=== PATIENT | male | born 1955 | race Caucasian/White ===

== ENCOUNTER 2018-05-03 11:54 | Day surgery (SDC) | payer BC ==
[~2018-05-03 11:54] MED LIST: Metoclopramide 10 MG/2 ML SDV IV PRN; Sodium Chloride 0.9% 1,000 ML IV SCH
[2018-05-03] MEDS ORDERED: Propofol 1,000 MG/100 ML SDV ONE (13:50)
[2018-05-03] MEDS ORDERED: Midazolam 1 MG/ML 2 ML SDV ONE (13:50)
[2018-05-03] MEDS ORDERED: Atropine 0.4 MG/ML SDV ONE (13:50)
--- NOTE | 2018-05-03 15:01 | OR ---
DATE OF OPERATION: 05/03/2018 PREOPERATIVE DIAGNOSIS: Screening colonoscopy. POSTOPERATIVE DIAGNOSIS: Screening colonoscopy. PROCEDURE: Incomplete colonoscopy with biopsy. ANESTHESIA: MAC. ESTIMATED BLOOD LOSS: Minimal. COMPLICATIONS: None. INDICATION FOR THE PROCEDURE: The patient is a 63-year-old male, here today for his first colonoscopy, no family history. Denies any change in bowel habits. DESCRIPTION OF THE PROCEDURE: Informed consent was obtained from the patient. The patient was taken to the operating room and placed on table in left lateral decubitus position. Monitored anesthesia care was administered. Digital rectal exam was performed and was normal. Colonoscope was then advanced through the anus and directed proximally and did reach approximately the splenic flexure when I encountered a large circumferential partially obstructing colon mass. This did appear likely malignant. Multiple cold forceps biopsies were taken. Was unable to safely negotiate past the mass. However, it was circumferential and at least 3 to 4 cm in length, but unable to safely negotiate through there. Colonoscope was then withdrawn. Mass was at approximately 60 cm and was approximately at the splenic flexure. The patient also had a small sessile polyp immediately distal to this , which was also left in place. At the end of the case, the patient tolerated the procedure well and was brought to the recovery room in good condition. Findings: Likely malignant mass near splenic flexure. Will f/u biopsies. Recommendations: Will send for CT colonography to clear the remainder of colon of any additional masses. Awaiting pathology. Further imaging and labs to follow. Will plan for surgical resection. GRAHAM /[id number] KIMBERLY
== END 2018-05-03 16:00 | disposition home or self-care (01) ==
LOC: LB.SDS 11:54
PROVIDERS: ATTEND Surgery
DX: Z12.11 Encounter for screening for malignant neoplasm of colon (principal); K63.5 Polyp of colon
CPT/HCPCS: 45378; 45380; 88305; J0461; J2250; J2704; J7030

== ENCOUNTER 2019-08-23 11:24 | Day surgery (SDC) | payer BC ==
[2019-08-23] MEDS ORDERED: Propofol 200 MG/20 ML SDV ONE (14:20)
--- NOTE | 2019-08-23 17:27 | OR ---
DATE OF OPERATION: 08/23/2019 SURGEON: Anoop Ogden MD PREOPERATIVE DIAGNOSIS: History of sigmoid colon cancer. POSTOPERATIVE DIAGNOSIS: History of sigmoid colon cancer. PROCEDURE: Surveillance colonoscopy. ANESTHESIA: MAC. ESTIMATED BLOOD LOSS: None. COMPLICATIONS: None. INDICATION FOR THE PROCEDURE: The patient is a 64-year-old male who 1 year ago was found to have a sigmoid colon cancer, did have resection of this done at [facility]. He is here today for 1 year followup. He otherwise denies any problems. DESCRIPTION OF PROCEDURE: Informed consent was obtained from the patient. The patient was taken to the operating room, placed on the table in left lateral decubitus position. Monitored anesthesia care was administered. Digital rectal exam performed, it was normal. Colonoscope was then advanced through the anus, directed toward the cecum. Cecum was reached and identified by appendiceal orifice and ileocecal valve. Colonoscope was then slowly withdrawn. No polyps. No masses. No areas of ischemia or inflammation identified. Anastomosis was identified and was widely patent. No signs of recurrence around this. The colonoscope was then further withdrawn. Rectum was also otherwise unremarkable. Colonoscope was then withdrawn. FINDINGS: Normal colonoscopy. RECOMMENDATIONS: We would recommend repeat surveillance colonoscopy in 3 years. JOSE/GEORGINA /[id number]
== END 2019-08-23 15:45 | disposition home or self-care (01) ==
LOC: LB.SDS 11:24
PROVIDERS: ATTEND Surgery
DX: Z12.11 Encounter for screening for malignant neoplasm of colon (principal); Z85.038 Personal history of other malignant neoplasm of large intestine; Z98.890 Other specified postprocedural states
CPT/HCPCS: 45378; J2704; J2765; J7030; G0121

== ENCOUNTER 2020-10-31 16:51 | Emergency (ER) | payer BC ==
[2020-10-31] MEDS ORDERED: Ketorolac 60 MG/2 ML SDV IM ONE (17:09)
--- NOTE | 2020-10-31 17:15 | EDM.PDOC ---
ED HPI GENERAL MEDICAL PROBLEM - General Chief Complaint: Back Pain or Injury Stated Complaint: Back pain Time Seen by Provider: 10/31/20 17:00 Source of Information: Reports: Patient History Limitations: Reports: No Limitations - History of Present Illness INITIAL COMMENTS - FREE TEXT/NARRATIVE: This patient presents to the emergency department for evaluation of back pain. He states he injured his back yesterday morning while getting out of bed to black pickler child. He states he thinks he twisted and felt tightness in his lower back immediately. He used ibuprofen at home and did see a chiropractor who made some type of an adjustment. He presents today because the pain is got unbearable and he now has pain in his right buttock and down his right leg. He denies any fall s. He denies any numbness or tingling in his feet and any incontinence of bowel or bladder. He states he had a previous musculoskeletal injury to his back approximately 15 years ago but did not have any pain down his leg. - Related Data Allergies Allergy/AdvReac Type Severity Reaction Status Date / Time No Known Allergies Allergy Verified 08/22/19 13:37 Home Meds: Home Meds NK [No Known Home Meds] 05/02/18 [History] Past Medical History Respiratory History: Reports: None Psychiatric History: Reports: None Oncologic (Cancer) History: Reports: Other (See Below) Other Oncologic History: Adenocarcinoma of sigmoid colon - Past Surgical History GI Surgical History: Reports: Colonoscopy, Other (See Below) Other GI Surgeries/Procedures: Colon resection r/t adenocarcinoma of sigmoid colon Social & Family History - Family History Family Medical History: No Pertinent Family History - Caffeine Use Caffeine Use: Reports: Coffee ED ROS GENERAL - Review of Systems Review Of Systems: Comprehensive ROS is negative, except as noted in HPI. Musculoskeletal: Reports: Back Pain, Leg Pain (Kathy did I asked her to). Denies: Neck Pain Neurological: Reports: Difficulty Walking. Denies: Numbness, Tingling, Weakness ED EXAM,LOWER BACK PAIN/INJURY - Physical Exam Exam: See Below Exam Limited By: No Limitations General Appearance: Alert, No Apparent Distress Ears: Normal External Exam Nose: Normal Inspection Throat/Mouth: Normal Inspection Head: Atraumatic, Normocephalic Neck: Normal Inspection Respiratory/Chest: No Respiratory Distress, No Accessory Muscle Use Back Exam: Normal Inspection, Decreased Range of Motion, Muscle Spasm, Paraspinal Tenderness (At approximately L4 and laterally to his left side. He also has tenderness in the left buttock and down his left leg.). No: Vertebral Tenderness Course - Orders/Labs/Meds Meds: Medications Discontinued Medications Generic Name Dose Route Start Last Admin Trade Name Royer PRN Reason Stop Dose Admin Ketorolac Tromethamine 60 mg 10/31/20 17:09 10/31/20 17:13 Ketorolac 60 Mg/2 Ml Sdv IM 10/31/20 17:10 60 mg ONETIME ONE Administration - Re-Assessments/Exams Free Text/Narrative Re-Assessment/Exam: 10/31/20 17:42 This patient presents to the emergency department for evaluation of lower back pain. He does have a history of back pain in the past. Back pain improved with the Toradol he was given here in the emergency department patient did not sustain any trauma so there does not seem to be a need to do x-rays due to the low likelihood of fracture or dislocation or subluxation. There are no red flag symptoms to suggest a CT her bladder or MRI is indicated at this point. He has not had a fever, saddle or perineal anesthesia bilateral foot numbness or bowel or bladder dysfunction. There is no clinical evidence of cauda equina syndrome, discitis, spinal or epidural space hematoma, or epidural abscess. Neurologic exam is grossly intact and the patient's symptoms seem consistent with a month kilo skeletal issue with muscle spasms and sciatica. Patient will be discharged with a nonsteroidal anti-inflammatory, Flexeril, and instructions for supportive care to include rest, ice, and gentle stretching exercises. He was cautioned to avoid heavy lifting, bending, or twisting. He should return for increasing pain, numbness, weakness or bowel or bladder dysfunction. He should follow up with his primary care provider as needed. The patient was stable at time of discharge. Departure - Departure Time of Disposition: 17:45 Disposition: Home, Self-Care 01 Condition: Good Clinical Impression: Low back pain - Discharge Information Instructions: Back Injury Prevention, [id number], Muscle Strain, [id number] Forms: ED Department Discharge Additional Instructions: Take Flexaril 10mg one tab 3 times a day as needed and Naproxen 500mg one tab twice a day. Follow up with primary provider.
[2020-10-31] MEDS ORDERED: Cyclobenzaprine 10 MG Tab ONE (17:30)
[2020-10-31] MEDS ORDERED: Naproxen 500 MG Tab ONE (17:30)
== END 2020-10-31 17:40 | disposition home or self-care (01) ==
LOC: LB.ED 16:51
DX: M54.5 Low back pain (principal)
CPT/HCPCS: 96372; 99283; A9270-GY; J1885

== ENCOUNTER 2024-05-08 07:45 | Emergency (ER) | payer BC ==
[2024-05-08] MEDS: Sodium Chloride 0.9% 1,000 ML IV SCH ×2 (07:47→09:19)
[2024-05-08 08:17] LABS: BASOPHILS ABSOLUTE AUTO 0.02 K/uL (0.02-0.10); BASOPHILS PERCENT AUTO 0.1 % (0.0-0.5); EOSINOPHILS ABSOLUTE AUTO 0.12 K/uL (0.04-0.40); EOSINOPHILS PERCENT AUTO 0.7 % (1.0-5.0); HEMATOCRIT 49.2 % (40.0-54.0); HEMOGLOBIN 16.3 g/dL (13.0-18.0); LYMPHOCYTES ABSOLUTE AUTO 3.54 K/uL (1.50-4.00); LYMPHOCYTES PERCENT AUTO 20.2 % (20.0-40.0); MEAN CORPUSCULAR HEMOGLOBIN 30.6 pg (27.0-32.0); MEAN CORPUSCULAR HGB CONC 33.1 g/dL (31.0-35.0); MEAN CORPUSCULAR VOLUME 93 fL (76-96); MEAN PLATELET VOLUME 10.5 fL (6.0-10.0); MONOCYTES PERCENT AUTO 2.9 % (3.0-10.0); NEUTROPHILS ABSOLUTE AUTO 13.33 K/uL (2.00-7.50); NEUTROPHILS PERCENT AUTO 76.1 % (45.0-70.0); PLATELET COUNT,PLT 191 K/uL (150-400); RED BLOOD CELL COUNT 5.32 M/uL (4.50-6.50); RED CELL DISTRIBUTION WIDTH 13.7 % (11.0-16.0); WHITE BLOOD CELL COUNT,WBC 17.5 K/uL (4.0-11.0)
[2024-05-08 08:32] LABS: ALBUMIN 3.2 g/dL (3.4-5.0); ANION GAP 14.3 mmol/L (5.0-15.0); BILIRUBIN TOTAL 0.7 mg/dL (0.0-1.0); BUN/CREATININE RATIO 13.1 (6-25); CALCIUM 8.2 mg/dL (8.5-10.1); CARBON DIOXIDE,CO2 26.2 mmol/L (21.0-32.0); CREATININE 1.68 mg/dL (0.70-1.30); EST CRCL DRUG DOSING (CG) 49.61 mL/min; POTASSIUM,K 4.5 mmol/L (3.5-5.1); PROTEIN TOTAL,TP 6.4 g/dL (6.4-8.2); TROPONIN I HIGH SENSITIVITY 8.5 pg/ml (<=60.4)
[2024-05-08 09:09] LABS: INFLUENZA A NAA NEGATIVE (NEGATIVE); INFLUENZA B NAA NEGATIVE (NEGATIVE); RESPIRATORY SYNCYTIAL VIR NAA NEGATIVE (NEGATIVE)
[2024-05-08 09:11] LABS: CORONAVIRUS COVID-19 NAA NEGATIVE (NEGATIVE)
[2024-05-08 09:28] LABS: APPEARANCE,URINE SLIGHTLY CLOUDY (CLEAR); BILIRUBIN,URINE NEGATIVE (NEGATIVE); COLOR,URINE YELLOW; GLUCOSE,URINE NEGATIVE (NEGATIVE); KETONES,URINE TRACE mg/dL (NEGATIVE); PH,URINE 5.5 (5.0-8.0); PROTEIN,URINE TRACE mg/dL (NEGATIVE)
[2024-05-08 09:29] LABS: LEUKOCYTE ESTERASE,URINE NEGATIVE (NEGATIVE); NITRITE,URINE NEGATIVE (NEGATIVE); OCCULT BLOOD,URINE NEGATIVE (NEGATIVE); RBC,URINE 0-5 /HPF; SQUAMOUS EPITHELIAL CELLS,UR FEW /HPF; UROBILINOGEN,URINE 0.2 E.U./dL (0.2-1.0); WBC,URINE 0-5 /HPF
[2024-05-08 09:30] LABS: HYALINE CASTS,URINE RARE /HPF
[2024-05-08] MEDS: Lidocaine 1% with EPINEPHrine 1:100,000 20 ML MDV INJECT ONE (10:01)
[2024-05-08] MEDS: Bacitracin Oint 1 GM U/D Packet TOP ONE (10:06)
[2024-05-08] MEDS: diphenhydrAMINE 25 MG Cap PO ONE (10:51)
[2024-05-10 23:08] LABS: BORRELIA SPECIES SOURCE Blood; BORRELIA SPP DNA DETECTION PCR Not Detected
== END 2024-05-08 10:53 | disposition home or self-care (01) ==
LOC: LB.ED 07:45
DX: R55 Syncope and collapse (principal); S01.21XA Laceration without foreign body of nose, initial encounter; R73.9 Hyperglycemia, unspecified; R94.4 Abnormal results of kidney function studies; W19.XXXA Unspecified fall, initial encounter; Y92.009 Unspecified place in unspecified non-institutional (private) residence as the place of occurrence of the external cause
CPT/HCPCS: 0241U; 12011; 36415; 71045; 80053; 81001; 84443; 84484; 85025; 87476; 93005; 93010; 96360; 96361; 99284; 99284-25; A0425; A0429; A9270-GY; J2004; J7030